=== PATIENT | male | born 1985 | race Caucasian/White ===

== ENCOUNTER 2022-07-19 12:53 | Outpatient (CLI) | payer OTHER ==
[~2022-07-19 12:53] MED LIST: MULTI VITAMIN1 EACH
== END 2022-07-19 13:03 | disposition home or self-care (01) ==
LOC: RAD 12:53
PROVIDERS: ATTEND General Practice
DX: J11.89 Influenza due to unidentified influenza virus with other manifestations (principal)

== ENCOUNTER 2024-11-06 14:55 | Outpatient (CLI) | payer OTHER | END 2024-11-06 15:07 | disposition home or self-care (01) | LOC: SONOGRAMA 14:55 | PROVIDERS: ATTEND General Practice | DX: R16.0 Hepatomegaly, not elsewhere classified (principal) ==